=== PATIENT | female | born 1975 | race Caucasian/White ===

== ENCOUNTER 2019-08-16 13:34 | Emergency (ER) | payer OTHER ==
[~2019-08-16] VITALS: Ht 167.6 cm; Wt 118.8 kg
[2019-08-16 13:43] VITALS: Ht 167.6 cm; Wt 118.8 kg
[2019-08-16 16:19] VITALS: BP 137/71
== END 2019-08-16 16:19 | disposition home or self-care (01) ==
LOC: ED 13:34
DX: H66.92 Otitis media, unspecified, left ear (principal); M54.2 Cervicalgia